=== PATIENT | female | born 1985 | race Two or more races ===

== ENCOUNTER 2024-06-15 08:00 | Inpatient (IN) | payer OTHER ==
[~2024-06-15] VITALS: Ht 170.2 cm; Wt 3.2 kg
[2024-06-15 12:44] LABS: HEMATOCRIT 30.7 % (36.0-45.00); HEMOGLOBIN 10.3 g/dL (12.0-15.00); MEAN CELL VOLUME 91.2 fL (80.00-100.00); MEAN CORPUSCULAR HEMOGLOBIN 30.6 pg (27.00-32.0); MEAN CORPUSCULAR HGB CONC 33.6 g/dl (32.0-36.0); PLATELET COUNT 305 K/uL (150-450); RED BLOOD COUNT 3.36 M/uL (4.00-6.00); RED CELL DISTRIBUTION WIDTH 14.9 % (11.5-14.5)
[2024-06-15 13:04] LABS: URINE APPEARANCE Clear; URINE BILIRRUBIN Negative (NEGATIVE); URINE BLOOD Negative; URINE COLOR Yellow; URINE GLUCOSE Negative (NEGATIVE); URINE KETONE Negative (NEGATIVE); URINE LEUKOCYTE Negative; URINE NITRATE Negative; URINE PROTEIN Negative (NEGATIVE); URINE UROBILINOGEN 0.2 E.U./dl
[2024-06-15 13:07] LABS: URINE BACTERIA 105.8 uL (0.0-1933); URINE EPITHELIAL CELLS 14.1 uL (0.0-38.8); URINE RBC 2.4 uL (0.0-20.8); URINE WBC 2.9 uL (0.0-23.2)
[2024-06-15 13:10] LABS: INR < 0.93; PARTIAL THROMBOPLASTIN TIME 23.9 SECONDS (22.0-34.0); PROTHROMBIN TIME 10.2 SECONDS (9.0-11.5)
[2024-06-15 14:26] LABS: RH POSITIVE
[2024-06-20 11:51] VITALS: BP 119/71
[2024-06-20] MEDS ORDERED: ERYTHROMYCIN BASE OPHT 1GM EACH TUBE OP ONE (15:45)
[2024-06-20] MEDS ORDERED: CEFAZOLIN SODIUM 1,000 MG VIAL IV ONE (15:45)
[2024-06-20] MEDS ORDERED: OXYTOCIN 10 UNITS/ML VIAL IV ONE (15:45)
[2024-06-20] MEDS ORDERED: KETOROLAC TROMETHAMINE 60 MG VIAL IM STA (17:50)
[2024-06-20] MEDS ORDERED: OXYTOCIN 1,000 ML IV SCH (18:00)
[2024-06-20] MEDS ORDERED: CHLORHEXIDINE GLUCONATE 120 ML BOTTLE TOP SCH (18:00)
[2024-06-20] MEDS ORDERED: PROMETHAZINE HCL 25 MG/ML AMPUL IM PRN (18:00)
[2024-06-20] MEDS ORDERED: RINGERS SOLUTION,LACTATED 1,000 ML IV SCH (18:00)
[2024-06-20] MEDS ORDERED: MEPERIDINE HCL/PF 50 MG/ML VIAL IM PRN (18:00)
[2024-06-20 20:20] VITALS: BP 129/69
[2024-06-20 21:11] LABS: HEMATOCRIT 31.6 % (36.0-45.00); HEMOGLOBIN 10.4 g/dL (12.0-15.00); MEAN CELL VOLUME 90.9 fL (80.00-100.00); PLATELET COUNT 299 K/uL (150-450); RED BLOOD COUNT 3.48 M/uL (4.00-6.00); RED CELL DISTRIBUTION WIDTH 15.5 % (11.5-14.5)
[2024-06-21 02:36] VITALS: BP 115/62
[2024-06-21 08:56] VITALS: BP 109/50
[2024-06-21] MEDS ORDERED: OxyCODONE HCL/APAP UD (PERCOCET) PO PRN (09:00)
[2024-06-21 14:33] VITALS: BP 102/65
[2024-06-21 17:03] VITALS: BP 101/66
[2024-06-21 21:11] VITALS: BP 114/69
[2024-06-22 00:18] VITALS: BP 100/62
[2024-06-22 10:34] VITALS: BP 104/70
[2024-06-22 16:00] VITALS: BP 117/72
[2024-06-23] VITALS: BP 114/70
[2024-06-23 08:12] VITALS: BP 131/82
[2024-06-23] MEDS ORDERED: IBUPROFEN800 MG PO (09:37)
== END 2024-06-23 14:28 | disposition home or self-care (01) | DRG 785 ==
LOC: LDR 06-20 08:00 → O/R 06-20 11:11 → OB/GYN 06-20 17:17
PROVIDERS: ADMIT Obstetrics & Gynecology; ATTEND Obstetrics & Gynecology
PROC: 0UB70ZZ Excision of Bilateral Fallopian Tubes, Open Approach (ICD-10-PCS; 2024-06-20)
PROC: 4A1HXCZ Monitoring of Products of Conception, Cardiac Rate, External Approach (ICD-10-PCS; 2024-06-20)
PROC: 10D00Z1 Extraction of Products of Conception, Low, Open Approach (ICD-10-PCS; principal; 2024-06-20 08:30)
DX: O34.211 Maternal care for low transverse scar from previous cesarean delivery (principal); Z3A.39 39 weeks gestation of pregnancy; Z37.0 Single live birth; Z20.822 Contact with and (suspected) exposure to COVID-19; Z30.2 Encounter for sterilization